=== PATIENT | male | born 1975 ===

== ENCOUNTER 2022-03-18 09:47 | Emergency (ER) | payer MEDICAID, SELFPAY ==
[2022-03-18 09:51] VITALS: BP 118/74; PULSE 78; RESP 18; TEMP 36.6; O2SAT 98; BMI 25.4
--- NOTE | 2022-03-18 10:56 | ED_ITS ---
HPI - General Adult General Chief complaint: Headache Stated complaint: PAIN ON RIGHT SIDE OF HEAD, EMERG CT SCAN Time Seen by Provider: 03/18/22 10:55 Source: patient Mode of arrival: ambulatory Limitations: no limitations History of Present Illness HPI narrative: Patient is a 46 year old male presenting to the emergency department today with pain and swelling to the right side of his head. Patient states that for the last 3 weeks, he has had swelling to the right part of his right near his right ear. Patient denies any dizziness, lightheadedness, abdominal pain, nausea, vomiting, fever, chills, blurry vision, double vision, loss of vision, chest pain, difficulty breathing, shortness of breath, back pain, night sweats, pain with urination, increased urinary frequency, increased urinary urgency, blood in his urine or stool, syncope or a near syncopal episode, recent trauma or falls, bowel incontinence, bladder incontinence, bowel retention, bladder retention, or any other complaints at this time. Onset (ago): week(s) (3) Location: head and face Radiation: non-radiation Severity: mild Severity scale (1-10): 2 Quality: aching Pain Consistency: constant Relieving factors: none Exacerbating factors: none Associated symptoms: denies other symptoms Treatments prior to arrival: none Related Data Previous Rx's Medication Instructions Recorded prednisone 20 mg tablet 20 mg PO DAILY 12 days #26 tabs 03/18/22 Allergies Allergy/AdvReac Type Severity Reaction Status Date / Time No Known Allergies Allergy Verified 03/18/22 11:03 Review of Systems Constitutional: Constitutional: Reports no additional constitutional complaints, Denies chills, Denies fever(s) and Denies night sweats Eyes: Eyes: Reports no additional eye complaints, Denies blurry vision, Denies change in vision, Denies diplopia, Denies eye discharge, Denies loss of vision and Denies eye pain ENT: Denies dizziness Cardiovascular: Cardiovascular: Reports no additional cardiovascular complaints, Denies chest pain, Denies lightheadedness, Denies Loss of Consciousness and Denies dyspnea Respiratory: Respiratory: Reports no additional respiratory complaints and D enies dyspnea Gastrointestinal: Gastrointestinal: Reports no additional gastrointestinal complaints, Denies abdominal pain, Denies melena, Denies hematochezia, Denies change in bowel habits and Denies change in stool character Genitourinary: Genitourinary: Reports no additional male genitourinary complaints, Denies hematuria, Denies oliguria, Denies difficulty urinating, Denies dysuria, Denies urinary frequency, Denies urinary hesitancy, Denies urinary incontinence and Denies urinary urgency Musculoskeletal: Musculoskeletal: Reports no additional musculoskeletal complaints, Denies numbness and Denies tingling Integumentary/Breasts: Comments: swelling and redness to right side of head Neurologic: Denies dizziness, Denies loss of vision, Denies numbness and Denies tingling Psychiatric: Psychiatric: Reports no additional psychiatric complaints Endocrine: Endocrine: Reports no additional endocrine complaints Hematologic/Lymphatic: Hematologic/Lymphatic: Reports no additional hematologic/lymphatic complaints Allergic/Immunologic: Allergic/Immunologic: Reports no additional allergic/immunologic complaints PMFSH Past Medical History Attestation statement: The following information was validated with the patient. Source: old records reviewed Social History Social History Patient Tobacco Use Status: Never used Tobacco Use of substances other than those prescribed or required for medical reasons: No Advance Directives: No Advance Directives Information Provided: No Physical Exam ED Vital Signs: Vital Signs - 24 hr 03/18/22 09:51 Temperature 98 F Pulse Rate 78 Respiratory Rate 18 Blood Pressure 118/74 Pulse Oximetry 98 Oxygen Delivery Method Room Air BMI result Body Mass Index 25.4 Const General: cooperative, no acute distress, alert and awake Nutritional Appearance: well nourished Orientation/consciousness: patient oriented x3 Limitations: no limitations HENMT Head: Yes normal to inspection and Yes atraumatic Ears: hearing grossly normal bilaterally and external ears normal General nose exam: Normal external nose present, no nasal discharge noted and no epistaxis Face and sinus: Yes normal facial exam, No abrasion and No laceration Mouth: Normal oral and palatal mucosa present, no drooling and no muffled voice Eyes General: appearance normal, both eyes and all related structures Periorbital: periorbital findings normal Eyelids: Yes eyelids normal Conjunctivae: conjunctivae normal Pupils: Equal, round and reactive pupils present EOM: EOMs intact bilaterally Neck Neck: Yes normal visual inspection, Yes full ROM and Yes no lymphadenopathy Chest Chest palpation & inspection: normal inspection of the chest Resp Effort & Inspection: normal respiratory effort and able to speak in complete sentences Auscultation: clear to auscultation bilaterally Cardio Rate: regular rate Rhythm: regular rhythm GI Inspection: Yes normal to inspection Skin Other: erythema and very mild swelling to the right side of the face, no warmth Neuro General: patient oriented x3 and moves all extremities Cranial nerves: Yes Equal, round and reactive pupils present Cognition (Neuro): normal cognition Motor exam (neuro): 5/5 motor strength present throughout Sensory Exam: Normal double simultaneous stimulation for sensation Coordination: [id number] test normal Extrem General: Yes normal to inspection, Yes full ROM and Yes capillary refill normal Psych Appearance: grossly normal Mental Status: mental status grossly normal Affect: normal affect Attitude: cooperative Thought process: Normal thought process present Thought content: Normal thought content present Insight: Good insight present (Psych) Medical Decision Making MDM Narrative Medical decision making narrative: Patient is a 46 year old male presenting to the emergency department today with right sided facial redness and swelling. Patient's physical exam showed erythema and mild swelling to the right forehead/scalp but no warmth or signs of infection. I explained my physical exam findings to the patient. I answered all questions asked by the patient. I stressed the importance of the patient taking his medication as prescribed. I stressed the importance of the patient following up with his primary care provider. I stressed the importance of the patient returning to the emergency department immediately if his symptoms were to worsen or if he were to develop any dizziness, shortness of breath, difficulty breathing, chest pain, blurry vision, loss of vision, nausea, vomiting, abdominal pain, fever, chills, back pain, or any other complaints. Patient verbalized agreement and understanding with this treatment plan and discharge. Differential Diagnosis Differential Diagnosis: Dermatitis Discharge Plan Discharge Clinical Impression: Dermatitis Patient Disposition: Home, Self-Care Instructions: Dermatitis (ED) Additional Instructions: Follow up with your primary care provider. Return to the emergency department immediately if your symptoms worsen or if you develop any dizziness, shortness of breath, difficulty breathing, chest pain, blurry vision, loss of vision, nausea, vomiting, abdominal pain, fever, chills, back pain, or any other complaints. Prescriptions: New prednisone 20 mg tablet 20 mg PO DAILY 12 Days Qty: 26 0RF Rx Instructions: Take 3 tablets for 5 days THEN; Take 2 tablets for 4 days THEN; Take 1 tablet for 3 days Referrals: [facility] [place] Family Medicine [Provider Group] (Call to establish and follow up with a primary care provider. If you already have a primary care provider, follow up wi th them. ) [facility] [Provider Group] (Call to establish and follow up with a primary care provider. If you already have a primary care provider, follow up with them. ) [facility] [Provider Group] (Call to establish and follow up with a primary care provider. If you already have a primary care provider, follow up with them. ) Interventions: ED Discharge Assessment Last Done: 03/18/22 12:02 Discharge Date/Time: 03/18/22 12:05 Print Language: Brazilian
== END 2022-03-18 12:05 | disposition home or self-care (01) ==
PROVIDERS: Emergency Provider Emergency Medicine
DX: L30.9 Dermatitis, unspecified (principal)
CPT/HCPCS: 99283

== ENCOUNTER 2024-06-04 13:37 | Outpatient (AMB) | payer OTHER, SELFPAY ==
--- NOTE | 2024-06-04 14:02 | A.OFFPC_ITS ---
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 Says he has not been to primary in some time and would like to get up to date. He has a history of elevated blood pressure readings. Says he took at home/friends and was 140/103. Denies headaches, vision changes. Says he feels that he urinates too much for the amount he drinks. Denies excessive thirst. Denies dysuria. No abdominal pain ROS see HPI PHYSICAL EXAM: GENERAL: Alert and oriented x 3. NAD EYES: EOMI. Anicteric. HENT: Moist mucous membranes. No scleral icterus. No cervical lymphadenopathy. LUNGS: Clear to auscultation bilaterally. CARDIOVASCULAR: Regular rate and rhythm. No murmur. No JVD. ABDOMEN: Soft, non-tender +bs EXTREMITIES: No edema. Non-tender. SKIN: No rashes or lesions. Warm. NEUROLOGIC: No focal neurological deficits. CN II-XII grossly intact PSYCHIATRIC: Cooperative. Appropriate mood and affect [facility] Medical History No pertinent past medical history Surgical History No pertinent past surgical history Family History Father Hypertension Social History Household Members: Family Both parents involved: No Caregiver staying overnight: No Housing: House Are you a primary workforce investment act career manager to a significant other at home: No Do you presently have visiting nurse or other home services: No Alcohol intake: current Alcohol intake frequency: holidays/special occasions only Alcohol type: beer Patient Tobacco Use Status: Never used Tobacco e-Cigarette/Vaping Use: Never Used service: No Current occupational status: employed Current occupation: [employer] Cognitive needs: No Hearing needs: No Vision needs: No Questionnaire PHQ-9 Over the last 2 weeks, how often have you been bothered by any of the following problems? 1. Little interest or pleasure in doing things: not at all 2. Feeling down, depressed, or hopeless: not at all 3. Trouble falling or staying asleep, or sleeping too much: not at all 4. Feeling tired or having little energy: not at all 5. Poor appetite or overeating: not at all 6. Feeling bad about yourself - or that you are a failure or have let yourself or your family down: not at all 7. Trouble concentrating on things, such as reading the newspaper or watching television: not at all 8. Moving or speaking so slowly that other people could have noticed. Or the opposite - being so fidgety or restless that you have been moving around a lot more than usual: not at all 9. Thoughts that you would be better off or of hurting yourself in some way: not at all Total score: 0 Depression Screening Interpretation: Negative (neg) Depression Screening Done: Yes 42880 - PHQ-9 Billing: Yes Source: Developed by Drs. Raymundo Gross, Jena Ortega, Emerson Naranjo and colleagues, with an educational dmitriy from [employer]. Thrive Questionnaire Date Thrive assessed: 06/04/24 I am a: Patient What is your living situation today?: I have a steady place to live Within the past 12 months, did the food you bought not last and you didn't have the money to get more?: Never true Within the past 12 months, did you worry whether your food would run out before you got money to buy more?: Never true Do you have trouble paying for medicines?: No Do you have trouble getting transportation to medical appointments?: No Do you have trouble paying your heating and electricity bill?: No Do you have trouble taking care of your child, family member or friend?: No Do you have trouble with day-to-day activities such as bathing, preparing meals, shopping, managing finances, etc.?: No Are you currently unemployed and looking for a job?: No Are you interested in more education?: No Please select the resources that you would like help with: None Currently or been in a relationship where the following occur: No concerns reported THRIVE Score: 0 AUDIT C Alcohol Use Questionnaire (AUDIT-C) 1. How often do you have a drink containing alcohol?: Monthly or less 2. How many drinks containing alcohol do you have on a typical day when you are drinking?: 1 or 2 3. How often do you have six or more drinks on one occasion?: Never Total Score: 1 JENY-7 AMB Questionnaire JENY-7 Date JENY - 7 assessed: 06/04/24 Feeling nervous, anxious, or on edge: 0 = Not at all Not being able to stop or control worryin = Nearly every day Worrying too much about different things: 0 = Not at all Trouble relaxin = Not at all Being so restless that it is hard to sit still: 0 = Not at all Becoming easily annoyed or irritable: 1 = Several days Feeling afraid as if something awful might happen: 0 = Not at all Total JENY-7 score (0-4 normal; 5-9 mild; 10-14 moderate; 15-21 severe): 4 Source: Developed by Drs. Raymundo Gross, Jena Ortega, Emerson Naranjo and colleagues, with an educational dmitriy from [employer]. JENY-7 Assessment Billing JENY-7 Assessment Tool: JENY-7 Assessment 01918 Physical exam (Primary Care) Vital Signs: Last Vital Signs Pulse 78 06/04/24 14:04 Resp 12 06/04/24 14:04 BP 132/70 06/04/24 14:04 Pulse Ox 99 06/04/24 14:04 Oxygen Delivery Method Room Air 06/04/24 14:04 BMI result Body Mass Index 25.2 Tobacco/Smoking Status: Tobacco use Status Tobacco use date assessed 06/04/24 06/04/24 14:15 Patient Tobacco Use Status Never used Tobacco 06/04/24 14:13 e-Cigarette/Vaping Use Never Used 06/04/24 14:13 PHQ-9: PHQ-9 Score PHQ-9: Total score 0 06/08/24 11:02 Depression Screening Interpretation: Negative (neg) Thrive Assessment: Date of Thrive Assessment Date Thrive assessed 06/04/24 06/04/24 14:15 Currently or been in a relationship where the following occur: No concerns reported Assessment and Plan Assessment & Plan (1) Encounter to establish care: Code(s): Z76.89 - Persons encountering health services in other specified circumstances Plan: 48 year old male presenting to establish care. Past medical, surgical, social and family history reviewed. Labs ordered. (2) Polyuria: Code(s): R35.89 - Other polyuria Plan: Check labs Orders: Orders Complete Blood Count Auto Diff 06/04/24 R35.89 - Other polyuria, Z12.5 - Encounter for screening for malignant neoplasm of prostate, Z13.220 - Encounter for screening for lipoid disorders, Z13.228 - Encounter for screening for other metabolic disorders, Z76.89 - Persons encountering health services in other specified circumstances Prostate Specific Antigen 06/04/24 R35.89 - Other polyuria, Z12.5 - Encounter for screening for malignant neoplasm of prostate, Z13.220 - Encounter for screening for lipoid disorders, Z13.228 - Encounter for screening for other metabolic disorders, Z76.89 - Persons encountering health services in other specified circumstances UA CC w/rflx Micro + Cult 06/04/24 R35.89 - Other polyuria Comprehensive Met. Panel 06/04/24 R35.89 - Other polyuria, Z12.5 - Encounter for screening for malignant neoplasm of prostate, Z13.220 - Encounter for screening for lipoid disorders, Z13.228 - Encounter for screening for other metabolic disorders, Z76.89 - Persons encountering health services in other specified circumstances Lipid Panel 06/04/24 R35.89 - Other polyuria, Z12.5 - Encounter for screening for malignant neoplasm of prostate, Z13.220 - Encounter for screening for lipoid disorders, Z13.228 - Encounter for screening for other metabolic disorders, Z76.89 - Persons encountering health services in other specified circumstances Hemoglobin A1c 06/04/24 R35.89 - Other polyuria, Z12.5 - Encounter for screening for malignant neoplasm of prostate, Z13.220 - Encounter for screening for lipoid disorders, Z13.228 - Encounter for screening for other metabolic disorders, Z76.89 - Persons encountering health services in other specified circumstances Referrals Open Access Screening Colonoscopy Referral Z12.11 - Encounter for screening for malignant neoplasm of colon, Z12.12 - Encounter for screening for malignant neoplasm of rectum Medications: Discontinued prednisone Take 3 tablets for 5 days THEN; Take 2 tablets for 4 days THEN; Take 1 tablet for 3 days Discontinued Reason: Order 20 mg PO DAILY 12 days 26 tabs 0RF Coding Level of Care Code New Pt Level 4 (29809) Diagnoses Encounter to establish care Z76.89 Polyuria R35.89 Additional Codes JENY-7 Assessment Billing - JENY-7 Assessment Tool: JENY-7 Assessment 62554 ([id number])
[2024-06-04 14:04] VITALS: BP 132/70; PULSE 78; RESP 12; O2SAT 99; BMI 25.2
== END 2024-06-04 14:39 | disposition home or self-care (01) ==
PROVIDERS: Visit Provider Internal Medicine
DX: R35.89 Other polyuria (principal); Z76.89 Persons encountering health services in other specified circumstances
CPT/HCPCS: 99204

== ENCOUNTER 2024-12-13 08:19 | Outpatient (AMB) | payer OTHER, SELFPAY ==
--- OUTSIDE RECORDS SUMMARY | 2024-12-13 08:27 | XMS_ITS | Clinical Summary ---
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 90 tablet 1 3 Active Diclofenac Sodium (Voltaren) 1 % gelIndications: Thigh sprain, left, initial encounter Apply 2 g topically if needed in the morning and at bedtime (muscle pain). 100 g 3 3 Active Social History Tobacco Use Types Packs/Day Years Used Date Smoking Tobacco: Never Passive Smoke Exposure: Never Smokeless Tobacco: Never Tobacco Cessation:Counseling Given: Not Answered Sex and Gender Information Value Date Recorded Sex Assigned at Male 08/05/2022 10:37 AM EDT Legal Sex Male 10:37 AM EDT Gender Identity Male 08/05/2022 10:37 AM EDT Sexual Orientation Choose not to disclose 2021 10:37 AM EDT Last Filed Vital Signs Vital Sign Reading Time Taken Comments Blood Pressure 150/96 06/06/2023 11:20 AM EDT Pulse 96 06/06/2023 11:20 AM EDT Temperature 36.8 ??C (98.3 ??F) 06/06/2023 11:20 AM E DT Respiratory Rate 16 06/06/2023 11:20 AM EDT Oxygen Saturation 97% 06/06/2023 11:20 AM EDT Inhaled Oxygen Concentration - - Weight 72.7 kg (160 lb 3.2 oz) 06/06/2023 11:20 AM EDT Height 167.6 cm (5' 6 ) 06/06/2023 11:20 AM EDT Body Mass Index 25.86 06/06/2023 11:20 AM EDT Plan of Treatment Health Maintenance Due Date Last Done Comments CT Colonography 1975 Colonoscopy 1975 Colorectal Cancer Screening 1975 Depression Screening 1975 FIT DNA/Cologuard 1975 FIT 1975 FOBT 1975 HIV Screening 1975 Lipid Panel 1975 SDOH Screening 1975 Sigmoidoscopy 1975 Alcohol/Substance Use Screening 1987 Family Planning (PISQ) 1990 DTaP/Tdap/Td Vaccines (1 - Tdap) 1994 Hepatitis B Vaccines (1 of 3 - 19+ 3-dose series) 1994 COVID-19 Vaccine (3 - 2023-2 5 season) 2024 02/17/2021, 01/27/2021 Influenza Vaccine (#1) 2024 Tobacco Screening 06/06/2024 06/06/2023 Zoster Vaccines (1 of 2) 2025 RSV Patients and Patients Aged 60 years or older (1 - 1-dose 75+ series) 2050 Hepatitis C Screening Completed 04/22/2020 HIB Vaccines Aged Out No longer eligi ble based on patient's age to complete this topic HPV Vaccines Aged Out No longer eligi ble based on patient's age to complete this topic Hepatitis A Vaccines Aged Out No long er eligible based on patient's age to complete this topic IPV Vaccines Aged Out No longer eligi ble based on patient's age to complete this topic Meningococcal Vaccine Aged Out No david lindsey eligible based on patient's age to complete this topic Pneumococcal Vaccine: Pediatrics (0 to 5 Years) and At-Risk Patients (6 to 49) Years) Aged Out No longer eligible b ased on patient's age to complete this topic RSV under 20 months Aged Out No longe r eligible based on patient's age to complete this topic Rotavirus Vaccines Aged Out No longer eligible based on patient's age to complete this topic Procedures Procedure Name Priority Date/Time Associated Diagnosis Comments ZZZ HISTORICAL HEPATITIS C ANTIBODY Routine 04/22/2020 8:00 AM EDT from Last 3 Months or Most Recently Relevant to Health Maintenance Results * HEPATITIS C ANTIBODY (04/22/2020 8:00 AM EDT) HEPATITIS C ANTIBODY NONREACTIVE NONREACTIVE [facility] Comment: Antibodies to HCV not detected; does not exclude early acute HCV infection. 04/22/2020 8:00 AM EDT us Ayden Gutierrez MD HISTORICAL/NON ORDERABLE LAB S Final Result [facility] [address] from Last 3 Months or Most Recently Relevant to Health Maintenance Insurance [address] [place], [place] [address] [address]
--- NOTE | 2024-12-13 08:32 | A.OFFPC_ITS ---
Vital Signs 12/13/24 08:37 Height 5 ft 6 in Weight 157 lb 6 oz BMI 25.4 BP 110/76 Blood Pressure Location Lt brachial Position Sitting Respiration 12 Pulse 63 Pulse Source Pulse Oximeter Pulse Oximetry (%) 99 Oxygen Delivery Method Room Air Intake Visit Reasons: physical exam Intake Note: Physical Record Keeper Required: Yes Record Keeper Language: Creative/Art Director Name: [id number] Allergies No Known Allergies Allergy (Verified 12/13/24 08:35) Medication List - Last Reconciled 12/13/24 by Marjorie Stiles MD No Known Home Meds Tobacco use date assessed: 12/13/24 Dental Screening Dental Screen Date: 06/04/24 HPI HPI Comments History of Present Illness Details This is a 48 year old male with a past medical history of elevated blood pressure presenting for physical exam CV: History of high blood pressure, reports often at home 140/100. Often normal too. BP here has been good. Denies chest pain, exertional dyspnea. At last visit Says he feels that he urinates too much for the amount he drinks. Denies excessive thirst. Denies dysuria. No abdominal pain Due for colonoscopy-referred. Number given today ROS see HPI PHYSICAL EXAM: GENERAL: Alert and oriented x 3. NAD EYES: EOMI. Anicteric. HENT: Moist mucous membranes. No scleral icterus. No cervical lymphadenopathy. LUNGS: Clear to auscultation bilaterally. CARDIOVASCULAR: Regular rate and rhythm. No murmur. No JVD. ABDOMEN: Soft, non-tender +bs EXTREMITIES: No edema. Non-tender. SKIN: No rashes or lesions. Warm. NEUROLOGIC: No focal neurological deficits. CN II-XII grossly intact PSYCHIATRIC: Cooperative. Appropriate mood and affect [facility] Medical History No pertinent past medical history Surgical History No pertinent past surgical history Family History Father Hypertension Social History Household Members: Family Both parents involved: No Caregiver staying overnight: No Housing: House Are you a primary critical care specialist to a significant other at home: No Do you presently have visiting nurse or other home services: No Alcohol intake: current Alcohol intake frequency: holidays/special occasions only Alcohol type: beer Patient Tobacco Use Status: Never used Tobacco e-Cigarette/Vaping Use: Never Used Use of substances other than those prescribed or required for medical reasons: No service: No Current occupational status: employed Current occupation: [employer] Cognitive needs: No Hearing needs: No Vision needs: No Questionnaire PHQ-9 Over the last 2 weeks, how often have you been bothered by any of the following problems? 1. Little interest or pleasure in doing things: not at all 2. Feeling down, depressed, or hopeless: not at all 3. Trouble falling or staying asleep, or sleeping too much: not at all 4. Feeling tired or having little energy: several days 5. Poor appetite or overeating: not at all 6. Feeling bad about yourself - or that you are a failure or have let yourself or your family down: not at all 7. Trouble concentrating on things, such as reading the newspaper or watching television: not at all 8. Moving or speaking so slowly that other people could have noticed. Or the opposite - being so fidgety or restless that you have been moving around a lot more than usual: not at all 9. Thoughts that you would be better off or of hurting yourself in some way: not at all Total score: 1 Depression Screening Interpretation: Negative Depression Screening Done: Yes 26594 - PHQ-9 Billing: Yes Source: Developed by Drs. Raymundo Gross, Jena Ortega, Emerson Naranjo and colleagues, with an educational dmitriy from [employer]. Thrive Questionnaire Date Thrive assessed: 12/13/24 I am a: Patient What is your living situation today?: I have a steady place to live Within the past 12 months, did the food you bought not last and you didn't have the money to get more?: Never true Within the past 12 months, did you worry whether your food would run out before you got money to buy more?: Never true Do you have trouble paying for medicines?: No Do you have trouble getting transportation to medical appointments?: No Do you have trouble paying your heating and electricity bill?: No Do you have trouble taking care of your child, family member or friend?: No Do you have trouble with day-to-day activities such as bathing, preparing meals, shopping, managing finances, etc.?: No Are you currently unemployed and looking for a job?: No Are you interested in more education?: No Please select the resources that you would like help with: None Currently or been in a relationship where the following occur: No concerns rep orted THRIVE Score: 0 AUDIT C Alcohol Use Questionnaire (AUDIT-C) 1. How often do you have a drink containing alcohol?: 2-4 times a month 2. How many drinks containing alcohol do you have on a typical day when you are drinking?: 3 or 4 3. How often do you have six or more drinks on one occasion?: Monthly Total Score: 5 JENY-7 AMB Questionnaire JENY-7 Date JENY - 7 assessed: 12/13/24 Feeling nervous, anxious, or on edge: 0 = Not at all Not being able to stop or control worryin = Not at all Worrying too much about different things: 0 = Not at all Trouble relaxin = Not at all Being so restless that it is hard to sit still: 0 = Not at all Becoming easily annoyed or irritable: 0 = Not at all Feeling afraid as if something awful might happen: 0 = Not at all Total JENY-7 score (0-4 normal; 5-9 mild; 10-14 moderate; 15-21 severe): 0 Source: Developed by Drs. Raymundo Gross, Jena Ortega, Emerson Naranjo and colleagues, with an educational dmitriy from [employer]. JENY-7 Assessment Billing JENY-7 Assessment Tool: JENY-7 Assessment 06656 Physical exam (Primary Care) Vital Signs: Last Vital Signs Pulse 63 12/13/24 08:37 Resp 12 12/13/24 08:37 BP 110/76 12/13/24 08:37 Pulse Ox 99 12/13/24 08:37 Oxygen Delivery Method Room Air 12/13/24 08:37 BMI result Body Mass Index 25.4 Tobacco/Smoking Status: Tobacco use Status Tobacco use date assessed 12/13/24 12/13/24 08:39 Patient Tobacco Use Status Never used Tobacco 12/13/24 08:40 e-Cigarette/Vaping Use Never Used 12/13/24 08:40 PHQ-9: PHQ-9 Score PHQ-9: Total score 1 12/13/24 08:39 Depression Screening Interpretation: Negative Thrive Assessment: Date of Thrive Assessment Date Thrive assessed 12/13/24 12/13/24 08:39 Currently or been in a relationship where the following occur: No concerns reported Coding Level of Care Code Est Pt Prev Care 40-64y(44975) Diagnoses Encounter to establish care Z76.89 Elevated blood pressure reading R03.0 Additional Codes JENY-7 Assessment Billing - JENY-7 Assessment Tool: JENY-7 Assessment 82140 ([id number]) PHQ-9 - 15516 - PHQ-9 Billing: Yes ([id number]) Assessment & Plan Assessment & Plan (1) Encounter to establish care: Code(s): Z76.89 - Persons encountering health services in other specified circumstances Category: Medical Plan: 49 y/o for physical exam Interval history reviewed. Preventive measures for age discussed Still reporting some high blood pressures. Low salt diet recommended. Nurse visit (2) Elevated blood pressure reading: Code(s): R03.0 - Elevated blood-pressure reading, without diagnosis of hypertension Category: Medical Plan: Nurse visit to be scheduled
[2024-12-13 08:37] VITALS: BP 110/76; PULSE 63; RESP 12; O2SAT 99; BMI 25.4
== END 2024-12-13 12:20 | disposition home or self-care (01) ==
PROVIDERS: PCP Internal Medicine; Visit Provider Internal Medicine
DX: Z00.00 Encounter for general adult medical examination without abnormal findings (principal); R03.0 Elevated blood-pressure reading, without diagnosis of hypertension; Z76.89 Persons encountering health services in other specified circumstances

== ENCOUNTER → 2024-12-13 08:19 | Outpatient (BNVA) | payer OTHER, SELFPAY | PROVIDERS: PCP Internal Medicine; Visit Provider Internal Medicine | DX: Z00.00 Encounter for general adult medical examination without abnormal findings (principal); R03.0 Elevated blood-pressure reading, without diagnosis of hypertension; Z76.89 Persons encountering health services in other specified circumstances | CPT/HCPCS: 96127; 99396 ==